=== PATIENT | male | born 1995 | race African-American/Black ===

== ENCOUNTER 2024-03-06 19:10 | Emergency (ER) | payer OTHER ==
[~2024-03-06] VITALS: Ht 182.9 cm; Wt 85.5 kg
[2024-03-06 19:14] VITALS: BP 125/79; PULSE 79; RESP 16; TEMP 98.2; O2SAT 97
[2024-03-06] MEDS: amox tr/potassium clavulanate 500mg/125mg TAB PO SCH (21:18)
[2024-03-06] MEDS ORDERED: AMOX-117 PO (21:38)
== END 2024-03-06 21:44 | disposition home or self-care (01) ==
LOC: ER 19:11
DX: K04.5 Chronic apical periodontitis (principal)
CPT/HCPCS: 99283